=== PATIENT | female | born 1965 | race Caucasian/White ===

== ENCOUNTER 2016-07-17 18:49 | Emergency (ER) | payer OTHER ==
--- NOTE | 2016-07-17 22:21 | ED ORDER SUMMARY ---
..... Patient: DORY MICHEL OrderSheet [facility] VisitID: [id number] [place] [address] 50y, F Registration Date/Time: 07/17/2016 ORDER SHEET Weight: 88.4 kg (stated) Allergies: Morphine and Related GENERAL ORDERS: UA-Culture if indicated Urgent (19:51 07/17/2016 ABarnum R.N. per protocol) (Ack 19:56 NHouse ER Tech1) (20:49 ABarnum R.N.) CBC w Diff Urgent (20:47 07/17/2016 HBivens A.R.N.P.) (Ack 20:50 NHouse ER Tech1) (20:57 ABarnum R.N.) CMP Urgent (20:47 07/17/2016 HBivens A.R.N.P.) (Ack 20:50 NHouse ER Tech1) (20:57 ABarnum R.N.) Amylase Urgent (20:47 07/17/2016 HBivens A.R.N.P.) (Ack 20:50 NHouse ER Tech1) (20:57 ABarnum R.N.) Lipase Urgent (20:47 07/17/2016 HBivens A.R.N.P.) (Ack 20:50 NHouse ER Tech1) (20:57 ABarnum R.N.) MEDICATION ORDERS: Hydrocodone-APAP PO 5/325 mg (NOW, HIGH ALERT MEDICATION) (22:13 07/17/2016 HBivens A.R.N.P.) (Ack 22:17 ABarnum R.N.) (22:21 ABarnum R.N.) IV FLUIDS: IV Saline Lock (19:59 07/17/2016 ABarnum R.N. per protocol) (20:00 ABarnum R.N.) Toradol IV 30 mg (NOW) (20:47 07/17/2016 HBivens A.R.N.P.) (Ack 20:49 ABarnum R.N.) (20:57 ABarnum R.N.) ORDER SHEET NOTES: [Electronically signed by Francisco Javier Zamarripa R.N. (22:54 07/17/2016)] [Electronically signed by Felicia Richard (23:27 07/17/2016)] [Electronically locked/signed by Francisco Javier Zamarripa R.N. (22:54 07/17/2016)]
--- NOTE | 2016-07-17 22:21 | ED CLINICAL REPORT ---
Clinical Report - Physicians/Mid Levels [facility] [address] [place] [address] 07/17/2016 18:49 Patient: DORY MICHEL Time Seen: 2019; initial patient contact, initial documentation, patient care assumed. Arrived- By private vehicle. Historian- patient. HISTORY OF PRESENT ILLNESS Chief Complaint: BACK PAIN. Onset- about 2 days ago and it is still present. Modifying factors. Not worsened by anything. Not relieved by anything. It is described as being severe and in the area of the right flank. The quality is noted to be "pain". No radiation. No bladder dysfunction, bowel dysfunction, sensory loss or motor loss. Additional history - feels similar to past uti's. Patient denies an injury but injury to the head or neck. No other injury. Similar symptoms previously: Occasionally, as bad. Recent medical care: Not recently seen/assessed. REVIEW OF SYSTEMS No fever, difficulty with urination, urinary frequency or hematuria. She has had nausea, vomiting and diarrhea. All systems otherwise negative, except as recorded above. PAST HISTORY See nurses notes. PROBLEMS: Gastroesophageal Reflux Disease. Back Pain. Acute Pain. --19:40 Missy Salma, R.N. Crohn's disease. SOCIAL HISTORY Light tobacco smoker. No alcohol use or drug use. No recent travel. Is a local resident. FAMILY HISTORY Negative. ADDITIONAL NOTES The nursing notes have been reviewed with agreement regarding the chief complaint, HPI, ROS, PMH and patient medications and allergies. PHYSICAL EXAM Vital Signs: 07/17/2016 19:35 BP: 130/66. HR: 83. RR: 18. O2 saturation: 98%. Temp: 98.5 F. Pain level now: 04/22. Have been reviewed as normal and appear to be correct. Appearance: Alert. No acute distress. Neck: Normal inspection. Neck nontender. Painless ROM. CVS: Heart sounds normal. Pulses normal. Respiratory: No respiratory distress. Breath sounds normal. Abdomen: No visible injury. Soft and nontender. Bowel sounds normal. No organomegaly. No mass. Back: Abnormal inspection. Painless ROM. Back tenderness present. Mild CVA tenderness on the right. No muscle spasm in the back, vertebral point tenderness, soft tissue tenderness or limitation in ROM. Skin: Skin warm and dry. Normal skin color. No rash. Normal skin turgor. Extremities: Extremities exhibit normal ROM. Extremities nontender. Neuro: Oriented X 3. Mood/affect normal. No motor deficit. No sensory deficit. LABS, X-RAYS, AND EKG Laboratory Tests: UA-Culture if indicated: (RONNY: 07/17/2016 19:40) ( [facility] [place]17[place] 20:14) Final results Test Result Flag Units (Reference) URINE COLOR YELLOW URINE APPEARANCE SL CLOUDY URINE GLUCOSE NEGATIVE (NEGATIVE) URINE BILIRUBIN NEGATIVE (NEGATIVE) URINE KETONE NEGATIVE (NEGATIVE) URINE SPECIFIC GRAVITY >= 1.030 (1.010-1.030) URINE PH 6.0 (5.0-8.0) URINE PROTEIN NEGATIVE (NEGATIVE) URINE UROBILINOGEN 0.2 EU/dL (0.2-1.0) URINE NITRITE NEGATIVE (NEGATIVE) URINE BLOOD TRACE-LYSED (NEGATIVE) URINE LEUK ESTERASE NEGATIVE (NEGATIVE) URINE RBC NONE SEEN rbc/hpf (0-1) URINE WBC 1-3 wbc/hpf (0-1) URINE EPITHELIAL CELLS 10-15 EPI/hpf (0-5) URINE BACTERIA FEW (1+) (NONE SEEN) URINE COMMENT CULT NOT INDICATED URINE CULTURES ARE SET-UP BASED ON THE FOLLOWING CRITERIA:POSITIVE NITRITEPOSITIVE LEUKOCYTE ESTERASEGREATER THAN 10 WHITE BLOOD CELLSMODERATE (2+) OR GREATER BACTERIA CBC w Diff: (RONNY: 07/17/2016 19:55) ( [facility] [place] 07/17/2016 21:18) Final results Test Result Flag Units (Reference) WHITE BLOOD COUNT 11.0 K/uL (4.5-11.5) RED BLOOD COUNT 5.33 H M/uL (4.00-5.20) HEMOGLOBIN 15.8 gm/dL (12.0-16.0) HEMATOCRIT 48.0 H % (36.0-46.0) MEAN CELL VOLUME 90 fL (80-100) MEAN CORPUSCULAR HGB 30 pg (26-34) MEAN CORPUSCULAR HGB CONC 33 g/dL (31-37) RED CELL DISTRIBUTION WIDTH 14.2 % (11.6-14.8) PLATELET COUNT 327 K/uL (150-400) NEUTROPHIL % 57.2 % (50-75) LYMPH % 33.6 % (25-40) MONO % 8.0 % (3-14) EOSINOPHIL % 0.8 % (0-4) BASOPHIL % 0.4 % (0-2) CMP: (RONNY: 07/17/2016 19:55) ( MsgRcvd 07/17/2016 21:28) Final results Test Result Flag Units (Reference) GLUCOSE 100 mg/dL (70-110) BUN 12 mg/dL (7-18) CREATININE 0.9 mg/dL (0.6-1.3) Estimated GFR >60 mL/min Estimated GFR- >60 mL/min Note: Persistent reduction over 3 months in eGFR<60 mL/min/1.73 m2 defines CKD. Patients with eGFR values>=60 mL/min/1.73 m2 may also have CKD if evidence ofpersistent proteinuria. Additional information may be foundat www.kidney.org. SODIUM 141 mmol/L (136-145) POTASSIUM 4.0 mmol/L (3.5-5.1) CHLORIDE 105 mmol/L (98-107) CARBON DIOXIDE 27 mmol/L (21-32) CALCIUM 8.5 mg/dL (8.5-10.1) TOTAL PROTEIN 7.3 g/dL (6.4-8.2) ALBUMIN 3.1 L g/dL (3.3-5.0) BILIRUBIN, TOTAL 0.3 mg/dL (0.0-1.0) ALKALINE PHOSPHATASE 69 U/L (46-116) AST (SGOT) 21 U/L (15-37) ALT (SGPT) 44 U/L (12-78) LIPASE 166 U/L (73-393) AMYLASE 47 U/L (25-115) . PROGRESS AND PROCEDURES Patient counseled in person regarding the patient's stable condition, test results and diagnosis. 2200. Differential Diagnosis: I considered gastritis, peptic ulcer disease, ischemia, gastroesophageal reflux disease, gastroparesis, Crohn's disease, ulcerative colitis, small bowel obstruction, colonic obstruction, colon cancer, gastroenteritis, cholecystitis, pancreatitis, viral syndrome, enterocolitis and urinary tract infection as a possible cause of vomiting in this patient. This is a partial list of diagnoses considered. Above considerations are based on history, physical exam and laboratory data. Differential diagnosis was discussed with patient. Disposition: Discharged home in good and improved condition (22:21). Condition: good and stable. CLINICAL IMPRESSION Acute right flank pain INSTRUCTIONS Warnings: GENERAL WARNINGS: Return or contact your physician immediately if your condition worsens or changes unexpectedly, if not improving as expected, or if other problems arise. SPECIFICALLY, return if you develop numbness or incontinence of feces (loss of bowel control) or urine (loss of bladder control). Prescription Medications: Septra DS 800 mg / 160 mg: take 1 tablet orally every 12 hours for 7 days. Dispense fourteen (14). No refills. Substitution is permissible. Ultram 50 mg tablets: take 1-2 orally every 6 hours as needed for pain. Dispense twenty (20). No refills. Substitution is permissible. Phenergan 25 mg tablets: Take 1 tablet orally every 6 hours as needed for nausea and vomiting. Dispense fifteen (15). No refills. Substitution is permissible. Follow-up: Follow up with your doctor in about three days even if well. Call for an appointment. Summary of care provided to patient. Understanding of the discharge instructions verbalized by patient. (Electronically signed by Felicia Richard A.R.N.P. 07/17/2016 23:27)
--- NOTE | 2016-07-17 22:21 | ED ORDER SUMMARY ---
..... Patient: DORY MICHEL OrderSheet [facility] VisitID: [id number] [place] [address] 50y, F Registration Date/Time: 07/17/2016 ORDER SHEET Weight: 88.4 kg (stated) Allergies: Morphine and Related GENERAL ORDERS: UA-Culture if indicated Urgent (19:51 07/17/2016 ABarnum R.N. per protocol) (Ack 19:56 NHouse ER Tech1) (20:49 ABarnum R.N.) CBC w Diff Urgent (20:47 07/17/2016 HBivens A.R.N.P.) (Ack 20:50 NHouse ER Tech1) (20:57 ABarnum R.N.) CMP Urgent (20:47 07/17/2016 HBivens A.R.N.P.) (Ack 20:50 NHouse ER Tech1) (20:57 ABarnum R.N.) Amylase Urgent (20:47 07/17/2016 HBivens A.R.N.P.) (Ack 20:50 NHouse ER Tech1) (20:57 ABarnum R.N.) Lipase Urgent (20:47 07/17/2016 HBivens A.R.N.P.) (Ack 20:50 NHouse ER Tech1) (20:57 ABarnum R.N.) MEDICATION ORDERS: Hydrocodone-APAP PO 5/325 mg (NOW, HIGH ALERT MEDICATION) (22:13 07/17/2016 HBivens A.R.N.P.) (Ack 22:17 ABarnum R.N.) (22:21 ABarnum R.N.) IV FLUIDS: IV Saline Lock (19:59 07/17/2016 ABarnum R.N. per protocol) (20:00 ABarnum R.N.) Toradol IV 30 mg (NOW) (20:47 07/17/2016 HBivens A.R.N.P.) (Ack 20:49 ABarnum R.N.) (20:57 ABarnum R.N.) ORDER SHEET NOTES: [Electronically signed by Francisco Javier Zamarripa R.N. (22:54 07/17/2016)] [Electronically signed by Felicia Richard (23:27 07/17/2016)] [Electronically locked/signed by Francisco Javier Zamarripa R.N. (22:54 07/17/2016)]
--- NOTE | 2016-07-17 22:21 | ED NURSING NOTES ---
Clinical Report - Nurses [facility] [address] [place] [address] 07/17/2016 18:49 Patient: DORY MICHEL TRIAGE Triage time 19:36 Jul 17 2016. Acuity: LEVEL 3. Chief Complaint: NAUSEA, VOMITING and DIARRHEA and (right flank pain). --19:45 Salma Louis RMeghaN. 19:35 07/17/16. BP: 130/66. HR: 83. RR: 18. O2 saturation: 98% on room air. Temp: 98.5 F. Pain level now: 04/22. --19:45 Salma Louis RMeghaN. Weight: 88.4 kg stated. Height/Length: 62 inches Per Patient. BMI: 35.7. --19:37 Salma Louis RMeghaN. Medications Omeprazole Oral. --19:38 Salma Louis R.N. Humira Pen Subcutaneous. --19:38 Salma Louis R.N. Vitamin B-Complex 100 Injection. --19:39 Salma Louis R.N. Phenergan (Promethazine) Oral. --19:39 Salma Louis RMeghaN. Allergies Morphine and Related. --19:38 Salma Louis R.N. The following entry was struck by Salma Louis R.N., 19:38 (07/17/16) Reason - other. <<STRICKEN ENTRY-- No Known Drug Allergy. --19:36 Salma Louis RMeghaN. --END STRIKE>>. History Arrived by private vehicle. Historian: patient. Onset was gradual. (2 days). SOCIAL HX: Current every day light tobacco smoker (cigarette)- less than 1/2 a pack per day. Alcohol use. (rarely). No drug use. ABUSE ASSESSMENT: No report of abuse. --19:45 Salma Louis RIrma. PROBLEMS: Gastroesophageal Reflux Disease. Back Pain. Acute Pain. --19:40 Salma LouisSilvestre. Interventions ID band on patient. To treatment room. --19:45 Missy SalmaSilvestre. PHYSICAL ASSESSMENT Ambulatory to room. GENERAL / NEURO / PSYCH: Alert. Oriented X 4. Appears in pain. HEENT: Mucous membranes are pink. RESPIRATORY: Respirations not labored. Breath sounds within normal limits. CVS: Normal sinus rhythm noted. Capillary refill less than 2 seconds. GI / : Abdomen soft and nontender. Bowel sounds within normal limits. SKIN: Skin is warm and dry. BACK: Normal inspection of the back. ( right flank tenerness). --19:45 Missy SalmaSilvestre. NURSING PROGRESS NOTES Pulse oximeter and NIBP monitor placed on patient; monitor alarms on. Head of bed elevated. Reassurance given. Two patient identifiers checked. Call light placed in reach. Side rails up x 1. Bed placed in lowest position. Brakes of bed on. --19:46 Missy SalmaSilvestre. Patient ready for evaluation- chart flagged. --19:46 [place], [place] 19:55 07/17/2016 Site #1 started via IV in the right antecubital space with an 20g angiocath, with aseptic technique and good blood return; one attempt. Blood drawn: rainbow set. Labeled in the presence of the patient and sent to the lab. Saline lock flushed with 10 mL saline. --20:00 Missy OctoberYamel 20:57 07/17/2016 Toradol IVP 30 mg given over 2 minute(s) via site #1. Allergies verified and confirmed 5 rights. IV patency established. IV site checked: no pain, redness, or swelling. IV flushed thoroughly pre- and post-medication administration. IVP given by RN. --20:57 Missy OctoberYamel 21:36 07/17/16. BP: 101/55. HR: 83. RR: 17. O2 saturation: 97%. Pain level now: 02/20. --21:37 Missy SalmaSilvestre. Pulse oximeter and NIBP monitor placed on patient; monitor alarms on. Patient gowned. Two patient identifiers checked. Call light placed in reach. Side rails up x 1. Bed placed in lowest position. Brakes of bed on. --21:37 Missy SalmaYamel 22:07 07/17/2016 Toradol IVP Response: no adverse reaction. --22:17 Salma Louis R.N. 22:21 07/17/2016 Hydrocodone-APAP (Hydrocodone-Acetaminophen) PO 5/325 mg Tablets 1 tab given. Allergies verified, confirmed 5 rights and sedative warning given to the patient. --22:21 Salma Louis R.N. DISPOSITION / DISCHARGE 22:54 07/17/2016 Site #1 removed upon discharge. Catheter intact. Bandaid applied. --22:54 Francisco Javier Zamarripa R.N. Departure time: 22:53. Condition at departure: improved. ( still in pain, per pt). No learning barriers present. Discharge instructions provided and reviewed with the patient. Reviewed warnings. Reviewed medication(s). Treatments reviewed. Patient verbalized understanding. Written instructions provided in Ukrainian. The patient was discharged by the nurse practitioner. She was discharged home and accompanied by family. She left the Emergency Department ambulatory and via private vehicle. Family member driving. --22:54 Francisco Javier Zamarripa R.N. 22:52 07/17/16. BP: 153/89. HR: 80. RR: 20. O2 saturation: 98%. Pain level now 5/10. --22:54 Francisco Javier Zamarripa R.N. Locked/Released at 07/17/2016 22:54 by Francisco Javier Zamarripa R.N.
--- NOTE | 2016-07-17 23:27 | ED MAR SUMMARY ---
..... Medication Administration [facility] [address] [place] [place] [address] Patient: DORY MICHEL Visit ID: [id number] 50y, F Weight: 88.4 kg Height/Length: 62 in BMI: 35.7 ALLERGIES: Morphine and Related Given 20:57 07/17/2016 Salma Louis R.N. Medication Administered: TORADOL [IVP], Dose: 30 mg IVP over 2 minute(s), Site: #1 right AC. Medication Ordered: Toradol IV 30 mg (NOW). Given 22:21 07/17/2016 Salma Louis R.N. Medication Administered: HYDROCODONE-APAP [PO] (HYDROCODONE-ACETAMINOPHEN), Dose: 1 tab 5/325 mg Tablets PO. Medication Ordered: Hydrocodone-APAP PO 5/325 mg (NOW, HIGH ALERT MEDICATION).
--- NOTE | 2016-07-17 23:27 | ED DISCHARGE INSTRUCTIONS ---
Patient: DORY MICHEL General Instructions [facility] VisitID: [id number] [place] [address] 50y, F Registration Date/Time: 07/17/2016 Acute right flank pain INSTRUCTIONS Warnings: GENERAL WARNINGS: Return or contact your physician immediately if your condition worsens or changes unexpectedly, if not improving as expected, or if other problems arise. SPECIFICALLY, return if you develop numbness or incontinence of feces (loss of bowel control) or urine (loss of bladder control). Prescription Medications: Septra DS 800 mg / 160 mg: take 1 tablet orally every 12 hours for 7 days. Dispense fourteen (14). No refills. Substitution is permissible. Ultram 50 mg tablets: take 1-2 orally every 6 hours as needed for pain. Dispense twenty (20). No refills. Substitution is permissible. Phenergan 25 mg tablets: Take 1 tablet orally every 6 hours as needed for nausea and vomiting. Dispense fifteen (15). No refills. Substitution is permissible. Follow-up: Follow up with your doctor in about three days even if well. Call for an appointment. Summary of care provided to patient. Understanding of the discharge instructions verbalized by patient. ADDITIONAL INFORMATION Flank Pain[Uncertain Cause] The flank is the area between the upper abdomen and the back. Pain here is often related to the kidneyan infection or a kidney stone. Other causes of flank pain include spinal arthritis, pinched nerve from a disk injury, back muscle strain or spasm. The cause of your flank pain is not certain and further tests may be needed. Home Care: You may use acetaminophen (Tylenol) or ibuprofen (Motrin, Advil) to control pain, unless another medicine was prescribed. [NOTE: If you have chronic liver or kidney disease or ever had a stomach ulcer or GI bleeding, talk with your doctor before using these medicines.] If the cause of your pain is coming from the muscles, ice or heat may give relief. During the first two days after injury, apply an ICE PACK to the painful area for 20 minutes every 2-4 hours. This will reduce swelling and pain. HEAT (hot shower, hot bath or heating pad) works well for muscle spasm. You can start with ice, then switch to heat after two days. Some patients feel best alternating ice and heat treatments. Use the one method that feels the best to you. Follow Up with your doctor or as advised by our staff for further evaluation if your symptoms are not improving over the next few days. Return Promptly or contact your doctor if any of the following occur: Repeated vomiting Fever of 100.4F (38C) or higher, or as directed by your healthcare provider Increasing flank pain Pain that spreads to the front of the abdomen Dizziness, weakness or fainting Blood in your urine Burning with urination or frequent urination Increasing pain in the leg Numbness or weakness in the leg Sulfamethoxazole, Trimethoprim Oral tablet What is this medicine? SULFAMETHOXAZOLE; TRIMETHOPRIM or SMX-TMP (suhl fuh meth OK eliza zohl; trye METH oh prim) is a combination of a sulfonamide antibiotic and a second antibiotic, trimethoprim. It is used to treat or prevent certain kinds of bacterial infections. It will not work for colds, flu, or other viral infections. How should I use this medicine? Take this medicine by mouth with a full glass of water. Follow the directions on the prescription label. Take your medicine at regular intervals. Do not take it more often than directed. Do not skip doses or stop your medicine early. Talk to your bridge carpenter regarding the use of this medicine in children. Special care may be needed. This medicine has been used in children as young as 2 months of age. What side effects may I notice from receiving this medicine? Side effects that you should report to your doctor or health child day care center worker as soon as possible: allergic reactions like skin rash or hives, swelling of the face, lips, or tongue breathing problems fever or chills, sore throat irregular heartbeat, chest pain joint or muscle pain pain or difficulty passing urine red pinpoint spots on skin redness, blistering, peeling or loosening of the skin, including inside the mouth unusual bleeding or bruising unusually weak or tired yellowing of the eyes or skin Side effects that usually do not require medical attention (report to your doctor or health child day care center worker if they continue or are bothersome): diarrhea dizziness headache loss of appetite nausea, vomiting nervousness What may interact with this medicine? Do not take this medicine with any of the following medications: aminobenzoate potassium dofetilide metronidazole This medicine may also interact with the following medications: ESCOBAR inhibitors like benazepril, enalapril, lisinopril, and ramipril cyclosporine digoxin diuretics indomethacin medicines for diabetes methenamine methotrexate phenytoin potassium supplements pyrimethamine sulfinpyrazone tricyclic antidepressants warfarin What if I miss a dose? If you miss a dose, take it as soon as you can. If it is almost time for your next dose, take only that dose. Do not take double or extra doses. Where should I keep my medicine? Keep out of the reach of children. Store at room temperature between 20 to 25 degrees C (68 to 77 degrees F). Protect from light. Throw away any unused medicine after the expiration date. What should I tell my health care provider before I take this medicine? They need to know if you have any of these conditions: anemia asthma being treated with anticonvulsants if you frequently drink alcohol containing drinks kidney disease liver disease low level of folic acid or [id number] dehydrogenase poor nutrition or malabsorption porphyria severe allergies thyroid disorder an unusual or allergic reaction to sulfamethoxazole, trimethoprim, sulfa drugs, other medicines, foods, dyes, or preservatives or trying to get breast-feeding What should I watch for while using this medicine? Tell your doctor or health child day care center worker if your symptoms do not improve. Drink several glasses of water a day to reduce the risk of kidney problems. Do not treat diarrhea with over the counter products. Contact your doctor if you have diarrhea that lasts more than 2 days or if it is severe and watery. This medicine can make you more sensitive to the sun. Keep out of the sun. If you cannot avoid being in the sun, wear protective clothing and use a sunscreen. Do not use sun lamps or tanning beds/booths. Tramadol Hydrochloride Oral tablet What is this medicine? TRAMADOL (TRA ma dole) is a pain reliever. It is used to treat moderate to severe pain in adults. How should I use this medicine? Take this medicine by mouth with a full glass of water. Follow the directions on the prescription label. If the medicine upsets your stomach, take it with food or milk. Do not take more medicine than you are told to take. Talk to your bridge carpenter regarding the use of this medicine in children. Special care may be needed. What side effects may I notice from receiving this medicine? Side effects that you should report to your doctor or health child day care center worker as soon as possible: allergic reactions like skin rash, itching or hives, swelling of the face, lips, or tongue breathing difficulties, wheezing confusion itching light headedness or fainting spells redness, blistering, peeling or loosening of the skin, including inside the mouth seizures Side effects that usually do not require medical attention (report to your doctor or health child day care center worker if they continue or are bothersome): constipation dizziness drowsiness headache nausea, vomiting What may interact with this medicine? Do not take this medicine with any of the following medications: MAOIs like Carbex, Eldepryl, Marplan, Nardil, and Parnate This medicine may also interact with the following medications: alcohol or medicines that contain alcohol antihistamines benzodiazepines bupropion carbamazepine or oxcarbazepine clozapine cyclobenzaprine digoxin furazolidone linezolid medicines for depression, anxiety, or psychotic disturbances medicines for migraine headache like almotriptan, eletriptan, frovatriptan, naratriptan, rizatriptan, sumatriptan, zolmitriptan medicines for pain like pentazocine, buprenorphine, butorphanol, meperidine, nalbuphine, and propoxyphene medicines for sleep muscle relaxants naltrexone phenobarbital phenothiazines like perphenazine, thioridazine, chlorpromazine, mesoridazine, fluphenazine, prochlorperazine, promazine, and trifluoperazine procarbazine warfarin What if I miss a dose? If you miss a dose, take it as soon as you can. If it is almost time for your next dose, take only that dose. Do not take double or extra doses. Where should I keep my medicine? Keep out of the reach of children. Store at room temperature between 15 and 30 degrees C (59 and 86 degrees F). Keep container tightly closed. Throw away any unused medicine after the expiration date. What should I tell my health care provider before I take this medicine? They need to know if you have any of these conditions: brain tumor depression drug abuse or addiction head injury if you frequently drink alcohol containing drinks kidney disease or trouble passing urine liver disease lung disease, asthma, or breathing problems seizures or epilepsy suicidal thoughts, plans, or attempt; a previous suicide attempt by you or a family member an unusual or allergic reaction to tramadol, codeine, other medicines, foods, dyes, or preservatives or trying to get breast-feeding What should I watch for while using this medicine? Tell your doctor or health child day care center worker if your pain does not go away, if it gets worse, or if you have new or a different type of pain. You may develop tolerance to the medicine. Tolerance means that you will need a higher dose of the medicine for pain relief. Tolerance is normal and is expected if you take this medicine for a long time. Do not suddenly stop taking your medicine because you may develop a severe reaction. Your body becomes used to the medicine. This does NOT mean you are addicted. Addiction is a behavior related to getting and using a drug for a non-medical reason. If you have pain, you have a medical reason to take pain medicine. Your doctor will tell you how much medicine to take. If your doctor wants you to stop the medicine, the dose will be slowly lowered over time to avoid any side effects. You may get drowsy or dizzy. Do not drive, use machinery, or do anything that needs mental alertness until you know how this medicine affects you. Do not stand or sit up quickly, especially if you are an older patient. This reduces the risk of dizzy or fainting spells. Alcohol can increase or decrease the effects of this medicine. Avoid alcoholic drinks. You may have constipation. Try to have a bowel movement at least every 2 to 3 days. If you do not have a bowel movement for 3 days, call your doctor or health child day care center worker. Your mouth may get dry. Chewing sugarless gum or sucking hard candy, and drinking plenty of water may help. Contact your doctor if the problem does not go away or is severe. Promethazine Hydrochloride Oral tablet What is this medicine? PROMETHAZINE (proe METH a zeen) is an antihistamine. It is used to treat allergic reactions and to treat or prevent nausea and vomiting from illness or motion sickness. It is also used to make you sleep before surgery, and to help treat pain or nausea after surgery. How should I use this medicine? Take this medicine by mouth with a glass of water. Follow the directions on the prescription label. Take your doses at regular intervals. Do not take your medicine more often than directed. Talk to your bridge carpenter regarding the use of this medicine in children. Special care may be needed. This medicine should not be given to infants and children younger than 2 years old. What side effects may I notice from receiving this medicine? Side effects that you should report to your doctor or health child day care center worker as soon as possible: blurred vision irregular heartbeat, palpitations or chest pain muscle or facial twitches pain or difficulty passing urine seizures skin rash slowed or shallow breathing unusual bleeding or bruising yellowing of the eyes or skin Side effects that usually do not require medical attention (report to your doctor or health child day care center worker if they continue or are bothersome): headache nightmares, agitation, nervousness, excitability, not able to sleep (these are more likely in children) stuffy nose What may interact with this medicine? Do not take this medicine with any of the following medications: medicines called MAO Inhibitors like Nardil, Parnate, Marplan, Eldepryl other phenothiazines like trimethobenzamide This medicine may also interact with the following medications: barbiturates like phenobarbital bromocriptine certain antidepressants certain antihistamines used in allergy or cold medicines epinephrine levodopa medicines for sleep medicines for mental problems and psychotic disturbances medicines for movement abnormalities as in Parkinson's disease, or for gastrointestinal problems muscle relaxants prescription pain medicines What if I miss a dose? If you miss a dose, take it as soon as you can. If it is almost time for your next dose, take only that dose. Do not take double or extra doses. Where should I keep my medicine? Keep out of the reach of children. Store at room temperature, between 20 and 25 degrees C (68 and 77 degrees F). Protect from light. Throw away any unused medicine after the expiration date. What should I tell my health care provider before I take this medicine? They need to know if you have any of these conditions: glaucoma high blood pressure or heart disease kidney disease liver disease lung or breathing disease, like asthma prostate trouble pain or difficulty passing urine seizures an unusual or allergic reaction to promethazine or phenothiazines, other medicines, foods, dyes, or preservatives or trying to get breast-feeding What should I watch for while using this medicine? Tell your doctor or health child day care center worker if your symptoms do not start to get better in 1 to 2 days. You may get drowsy or dizzy. Do not drive, use machinery, or do anything that needs mental alertness until you know how this medicine affects you. To reduce the risk of dizzy or fainting spells, do not stand or sit up quickly, especially if you are an older patient. Alcohol may increase dizziness and drowsiness. Avoid alcoholic drinks. Your mouth may get dry. Chewing sugarless gum or sucking hard candy, and drinking plenty of water may help. Contact your doctor if the problem does not go away or is severe. This medicine may cause dry eyes and blurred vision. If you wear contact lenses you may feel some discomfort. Lubricating drops may help. See your eye doctor if the problem does not go away or is severe. This medicine can make you more sensitive to the sun. Keep out of the sun. If you cannot avoid being in the sun, wear protective clothing and use sunscreen. Do not use sun lamps or tanning beds/booths. If you are diabetic, check your blood-sugar levels regularly. You have been given the following additional information: Flank Pain, Uncertain Cause Sulfamethoxazole, Trimethoprim Oral tablet Tramadol Hydrochloride Oral tablet Promethazine Hydrochloride Oral tablet (Electronically signed by Felicia Richard A.R.N.P. 07/17/2016 23:27)
--- NOTE | 2016-07-17 23:27 | ED MAR SUMMARY ---
..... Medication Administration Record [facility] [address] [place] [place] [address] Patient: DORY MICHEL Visit ID: [id number] 50y, F Weight: 88.4 kg Height/Length: 62 in BMI: 35.7 ALLERGIES: Morphine and Related Given 20:57 07/17/2016 Salma Louis R.N. Medication Administered: TORADOL [IVP], Dose: 30 mg IVP over 2 minute(s), Site: #1 right AC. Medication Ordered: Toradol IV 30 mg (NOW). Given 22:21 07/17/2016 Salma Louis R.N. Medication Administered: HYDROCODONE-APAP [PO] (HYDROCODONE-ACETAMINOPHEN), Dose: 1 tab 5/325 mg Tablets PO. Medication Ordered: Hydrocodone-APAP PO 5/325 mg (NOW, HIGH ALERT MEDICATION).
--- NOTE | 2016-07-17 23:27 | ED MED RECONCILIATION SUMMARY ---
Patient: DORY MICHEL Medication Reconciliation Report [facility] VisitID: [id number] [address] [place] [address] 50y, F Registration Date/Time: 07/17/2016 Weight: 88.4 kg Height/Length: 62 in. BMI: 35.7 ALLERGIES: Morphine and Related The patient's Home Medications are listed below: THE FOLLOWING MEDICATIONS NEED TO BE RECONCILED: Humira Pen Subcutaneous Omeprazole Oral Phenergan (Promethazine) Oral Vitamin B-Complex 100 Injection The source(s) of the original Home Medication information: Not obtained. The following Medications were given to the patient in the Emergency Department: Toradol [IVP] IVP 30 mg, administered: 07/17/2016 8:57:00 PM Hydrocodone-APAP [PO] PO 1 tab, administered: 07/17/2016 10:21:00 PM The following Medications were prescribed to the patient: Septra DS 800 mg / 160 mg: take 1 tablet orally every 12 hours for 7 days. Dispense fourteen (14). No refills. Substitution is permissible. -- Felicia Richard, A.R.N.P. Ultram 50 mg tablets: take 1-2 orally every 6 hours as needed for pain. Dispense twenty (20). No refills. Substitution is permissible. -- Felicia Richard, A.R.N.P. Phenergan 25 mg tablets: Take 1 tablet orally every 6 hours as needed for nausea and vomiting. Dispense fifteen (15). No refills. Substitution is permissible. -- Felicia Richard, A.R.N.P.
--- NOTE | 2016-07-17 23:27 | ED MED RECONCILIATION SUMMARY ---
Patient: DORY MICHEL Medication Reconciliation Report [facility] VisitID: [id number] [address] [place] [address] 50y, F Registration Date/Time: 07/17/2016 Weight: 88.4 kg Height/Length: 62 in. BMI: 35.7 ALLERGIES: Morphine and Related The patient's Home Medications are listed below: THE FOLLOWING MEDICATIONS NEED TO BE RECONCILED: Humira Pen Subcutaneous Omeprazole Oral Phenergan (Promethazine) Oral Vitamin B-Complex 100 Injection The source(s) of the original Home Medication information: Not obtained. The following Medications were given to the patient in the Emergency Department: Toradol [IVP] IVP 30 mg, administered: 07/17/2016 8:57:00 PM Hydrocodone-APAP [PO] PO 1 tab, administered: 07/17/2016 10:21:00 PM The following Medications were prescribed to the patient: Septra DS 800 mg / 160 mg: take 1 tablet orally every 12 hours for 7 days. Dispense fourteen (14). No refills. Substitution is permissible. -- Felicia Richard, A.R.N.P. Ultram 50 mg tablets: take 1-2 orally every 6 hours as needed for pain. Dispense twenty (20). No refills. Substitution is permissible. -- Felicia Richard, A.R.N.P. Phenergan 25 mg tablets: Take 1 tablet orally every 6 hours as needed for nausea and vomiting. Dispense fifteen (15). No refills. Substitution is permissible. -- Felicia Richard, A.R.N.P.
== END 2016-07-17 22:50 | disposition home or self-care (01) ==
LOC: ED SRH 18:49
DX: R10.9 Unspecified abdominal pain (principal); R11.2 Nausea with vomiting, unspecified; R19.7 Diarrhea, unspecified; K21.9 Gastro-esophageal reflux disease without esophagitis; F17.210 Nicotine dependence, cigarettes, uncomplicated
CPT/HCPCS: 90004; 90100; 92235; 92530; 95059